=== PATIENT | female | born 1970 | race Hispanic/Latino ===

== ENCOUNTER 2017-06-02 18:14 | Emergency (ER) | payer SELFPAY ==
[~2017-06-02] VITALS: Ht 160 cm; Wt 70.3 kg
[2017-06-02] MEDS ORDERED: ALBUTEROL SULF 0.083% NEB SOLN 3 ML NEB NEB STA (19:07)
--- NOTE | 2017-06-02 19:47 | Diagnostic Imaging Report ---
CHEST 2 VIEWS, Technique: CHEST 2 VIEWS Comparison: None Clinical history: \S\cough x 3 weeks \S\[id number] \S\1911 DISCUSSION: Minimal left basilar scarring or atelectasis. Otherwise unremarkable appearance of the heart, mediastinum, lungs and pleural spaces. Left clavicle ORIF in place. IMPRESSION: No acute abnormality Signed by: Dr Jaycee Perez MD on 06/02/2017 7:44 PM
== END 2017-06-02 20:47 | disposition home or self-care (01) ==
LOC: ER 18:14
DX: R05 Cough (principal); J11.1 Influenza due to unidentified influenza virus with other respiratory manifestations
CPT/HCPCS: 71020; 87400; 99283

== ENCOUNTER → 2020-11-09 | Outpatient (CLI) | payer OTHER | LOC: RAD 10:36 | PROVIDERS: ATTEND Internal Medicine | DX: Z00.00 Encounter for general adult medical examination without abnormal findings (principal) | CPT/HCPCS: 71046 ==